=== PATIENT | male | born 1970 | race Caucasian/White ===

== ENCOUNTER 2022-05-23 09:14 | Outpatient (CLI) | payer BC, SELFPAY | END 2022-05-23 09:15 | disposition home or self-care (01) | LOC: OP CLINIC 09:15 | PROVIDERS: PCP Family Medicine; Visit Provider Surgery | DX: Z12.11 Encounter for screening for malignant neoplasm of colon (principal); K63.5 Polyp of colon | CPT/HCPCS: 45385; 88305; J1200; J2250; J3010 ==

== ENCOUNTER 2022-06-25 10:55 | Outpatient (CLI) | payer BC, SELFPAY ==
[2022-06-25 13:58] LABS: Albumin* 4.2 g/dL (3.3-5.0); Chloride* 107 mmol/L (96-114); Potassium* 4.1 mmol/L (3.6-5.1); Sodium* 138 mmol/L (135-149)
[2022-06-25 14:00] LABS: Carbon Dioxide* 28 mmol/L (20-32); Cholesterol* 178 mg/dL (90-199)
[2022-06-25 14:01] LABS: Alanine Aminotransferase* 28 U/L (4-50); Alkaline Phosphatase* 51 U/L (40-150); Aspartate Amino Transferase* 29 U/L (12-35); Bilirubin Total* 0.9 mg/dL (0.1-1.5); Blood Urea Nitrogen* 12 mg/dL (7-30); Calcium* 9.1 mg/dL (8.4-10.6); Creatinine* 0.7 mg/dL (0.5-1.5); Estimated Glomerular Filt Rate 110 ml/min; Glucose* 86 mg/dL (60-115); HDL Cholesterol* 54 mg/dL (>=40); LDL Cholesterol Calculated 102 mg/dL (<100); Total Protein* 6.9 g/dL (6.0-8.3); Triglycerides* 109 mg/dL (40-149)
[2022-06-25 14:22] LABS: PSA Screen* 0.35 ng/mL (0.10-4.00)
== END 2022-06-25 10:56 | disposition home or self-care (01) ==
PROVIDERS: PCP Family Medicine; Visit Provider Family Medicine
DX: Z00.00 Encounter for general adult medical examination without abnormal findings (principal); E78.5 Hyperlipidemia, unspecified; Z12.5 Encounter for screening for malignant neoplasm of prostate
CPT/HCPCS: 80053; 80061; 84153

== ENCOUNTER 2022-07-11 12:34 | Outpatient (CLI) | payer BC, SELFPAY ==
--- NOTE | 2022-07-11 13:00 | CRLHL7_ITS ---
For Patients: As a result of the Century Cures Act, medical imaging exams and procedure reports are released immediately into your electronic medical record. You may view this report before your referring provider. If you have questions, please contact your health care provider. INDICATION: Chronic nasal congestion. TECHNIQUE: Noncontrast CT images acquired through the paranasal sinuses. COMPARISON: None. FINDINGS: No air-fluid levels to suggest acute sinusitis. Large right and moderate left maxillary sinus retention cysts or polyps. Lqyd-xz-kyakwhfp lobulated mucosal thickening within the left maxillary sinus. The ethmoid infundibula are widely patent. Ezna-rd-xzezeioy mucosal thickening in the frontal recesses. The frontal sinuses are otherwise clear. Hqsu-lv-ujudsaqi opacification of the ethmoid air cells. Minimal mucosal thickening in the sphenoid sinuses. The sphenoethmoidal recesses are patent. There is 3 mm leftward nasal septal deviation and 3 mm leftward directed septal spur contacting the left inferior nasal turbinate. No nasal cavity masses. Moderately severe opacification of the left mastoid air cells and severe opacification of the left middle ear cavity. The right mastoid air cells are clear. IMPRESSION: 1. Large right and moderate left maxillary sinus retention cysts or polyps. 2. Npgs-uw-ygejiubj paranasal sinus mucosal thickening. No air-fluid level suggest acute sinusitis. 3. Leftward nasal septal deviation and leftward directed septal spur contacting the left inferior nasal turbinate. 4. Moderately severe opacification of the left mastoid air cells and severe opacification of the left middle ear cavity. Please note that all CT scans at this facility use dose modulation, iterative reconstruction, and/or weight-based dosing when appropriate to reduce radiation dose to as low as reasonably achievable. Dictated by Alec Worrell MD @ 07/11/2022 3:46:32 PM (Electronically Signed)
== END 2022-07-11 12:35 | disposition home or self-care (01) ==
LOC: CT 12:35
PROVIDERS: PCP Family Medicine; Visit Provider Family Medicine
DX: R09.81 Nasal congestion (principal); J32.0 Chronic maxillary sinusitis; J34.2 Deviated nasal septum
CPT/HCPCS: 70486

== ENCOUNTER 2022-09-11 19:27 | Outpatient (CLI) | payer BC, SELFPAY ==
--- NOTE | 2022-10-01 08:04 | W.PM.SLEEP ---
Sleep Study Details Details Interpreting Provider: Talib Date of Sleep Study: 09/11/22 Sleep Study Details: STUDY TYPE:? [Home ? BMI:? 29 ORDERING PROVIDER:? Talib INDICATION:? Concerns about sleep apnea ? SLEEP SUMMARY: 234.9 minutes monitored RESPIRATORY SUMMARY:? AHI 6.9 Low oxygen 83 0.2% of study oxygen less than 90 Snoring 5.9% PERIODIC LIMB MOVEMENTS OF SLEEP:? Not recorded CARDIAC:? Range 50-94, mean 65.2 IMPRESSION:? Mild obstructive sleep apnea with supine position dependency. The supine AHI was 26.8. RECOMMENDATION: Treatment options would include AutoSet CPAP, dental appliance and/or airway expansion surgery.
== END 2022-09-11 19:28 | disposition home or self-care (01) ==
LOC: SLEEP 19:28
PROVIDERS: PCP Family Medicine; Visit Provider Otolaryngology
DX: G47.33 Obstructive sleep apnea (adult) (pediatric) (principal)
CPT/HCPCS: 95806

== ENCOUNTER 2023-07-23 08:01 | Outpatient (CLI) | payer BC, SELFPAY | END 2023-07-23 08:02 | disposition home or self-care (01) | LOC: NFLDREF 07-25 05:28 | PROVIDERS: PCP Family Medicine; Referring Provider Family Medicine; Visit Provider Emergency Medicine | DX: Z12.5 Encounter for screening for malignant neoplasm of prostate (principal); Z13.1 Encounter for screening for diabetes mellitus; Z13.6 Encounter for screening for cardiovascular disorders | CPT/HCPCS: 80053; 80061; G0103 ==

== ENCOUNTER 2024-08-06 08:48 | Outpatient (CLI) | payer BC, SELFPAY | END 2024-08-06 08:49 | disposition home or self-care (01) | LOC: NFLDREF 08-10 07:16 | PROVIDERS: PCP Family Medicine; Referring Provider Family Medicine; Visit Provider Family Medicine | DX: I10 Essential (primary) hypertension (principal); E78.2 Mixed hyperlipidemia; E78.41 Elevated Lipoprotein(a); G47.33 Obstructive sleep apnea (adult) (pediatric); Z12.5 Encounter for screening for malignant neoplasm of prostate; Z82.49 Family history of ischemic heart disease and other diseases of the circulatory system | CPT/HCPCS: 80053; 80061; G0103 ==

== ENCOUNTER 2024-08-31 15:38 | Outpatient (CLI) | payer BC, SELFPAY ==
--- NOTE | 2024-08-31 16:00 | CRLHL7_ITS ---
For Patients: As a result of the Century Cures Act, medical imaging exams and procedure reports are released immediately into your electronic medical record. You may view this report before your referring provider. If you have questions, please contact your health care provider. Indication: previous bilateral inguinal hernia repair, px states pain in the right groin Technique: Grayscale ultrasound of the right groin soft tissues performed. Exam performed with and without Valsalva and sitting/standing. Comparison: None Findings: No fluid collection or mass. No hernia. No adenopathy. Impression: No evidence of hernia or fluid collection. Dictated by Go Mccarthy MD @ 09/01/2024 8:46:24 AM (Electronically Signed)
== END 2024-08-31 15:39 | disposition home or self-care (01) ==
LOC: US 15:39
PROVIDERS: PCP Family Medicine; Visit Provider Surgery
DX: R10.9 Unspecified abdominal pain (principal)
CPT/HCPCS: 76857

== ENCOUNTER 2024-09-09 15:44 | Outpatient (CLI) | payer BC, SELFPAY ==
--- NOTE | 2024-09-09 16:45 | CRLHL7_ITS ---
For Patients: As a result of the Century Cures Act, medical imaging exams and procedure reports are released immediately into your electronic medical record. You may view this report before your referring provider. If you have questions, please contact your health care provider. INDICATION: Right groin pain. Rule out recurrent right inguinal hernia. TECHNIQUE: CT abdomen and pelvis without contrast. COMPARISON: None. FINDINGS: Lower chest: Unremarkable. Liver: Normal in size and attenuation. No suspicious masses. Gallbladder and bile ducts: No stones or inflammation. No biliary dilatation. Pancreas: Unremarkable. No mass or inflammation. Spleen: Normal in size. No masses. Adrenal glands: Normal in size. No nodules. Kidneys: Normal in size. No suspicious masses, stones, or hydronephrosis. GI tract: Unremarkable. Normal in caliber. No sign of mass or inflammation. Normal appendix. Vasculature: Mild vascular calcifications. Abdominal aorta is normal in caliber. Lymph nodes: No lymphadenopathy. Peritoneum/Abdominal Wall: Prior right inguinal hernia repair without definite evidence of recurrence. No focal fluid collection. No sign of mass or infiltration. No free air or significant free fluid. Pelvis: Bladder is unremarkable. Prostate is unremarkable. Bones: Unremarkable for age. IMPRESSION: No acute or suspicious findings. No definite evidence of recurrent right inguinal hernia. Please note that all CT scans at this facility use dose modulation, iterative reconstruction, and/or weight-based dosing when appropriate to reduce radiation dose to as low as reasonably achievable. Dictated by Go Andrade MD @ 09/11/2024 1:09:34 AM (Electronically Signed)
== END 2024-09-09 15:45 | disposition home or self-care (01) ==
LOC: CT 15:45
PROVIDERS: PCP Family Medicine; Visit Provider Surgery
DX: R10.31 Right lower quadrant pain (principal)
CPT/HCPCS: 74176